=== PATIENT | female | born 1990 | race Caucasian/White ===

== ENCOUNTER 2023-08-27 11:26 | Emergency (ER) | payer MEDICAID ==
[~2023-08-27] VITALS: Ht 157.5 cm; Wt 70.0 kg
[2023-08-27 11:40] VITALS: BP 140/99; PULSE 71; TEMP 97.8; O2SAT 98
[2023-08-27] MEDS ORDERED: NAPR-56 PO (14:03)
[2023-08-27] MEDS ORDERED: DOXY-135 PO (14:03)
[2023-08-27] MEDS ORDERED: ketorolac trometh inj. 60 MG/2 ML VIAL IM ONE (14:05)
[2023-08-27] MEDS ORDERED: ketorolac trometh. 30mg/ml inj. IM ONE (14:10)
[2023-08-27 14:16] VITALS: RESP 17
== END 2023-08-27 14:19 | disposition home or self-care (01) ==
LOC: ER 11:26
DX: K04.7 Periapical abscess without sinus (principal); K08.89 Other specified disorders of teeth and supporting structures; R22.0 Localized swelling, mass and lump, head; Z72.89 Other problems related to lifestyle; Z56.0 Unemployment, unspecified; Z88.0 Allergy status to penicillin; Z79.2 Long term (current) use of antibiotics; Z79.899 Other long term (current) drug therapy
CPT/HCPCS: 96372; 99283; J1885